=== PATIENT | male | born 1955 | race Caucasian/White ===

== ENCOUNTER → 2018-09-21 | Outpatient (CLI) | payer MEDICARE ==
[2018-09-21 10:55] LABS: INR 1.8 (<1.2); Prothrombin Time 18.2 sec (9.0-12.0)
== END | disposition home or self-care (01) ==
LOC: LABWHC1 09:47
DX: I81 Portal vein thrombosis (principal)
CPT/HCPCS: 36415; 85610

== ENCOUNTER → 2018-09-28 | Outpatient (CLI) | payer MEDICARE ==
[2018-09-28 11:46] LABS: INR 2.2 (<1.2); Prothrombin Time 21.9 sec (9.0-12.0)
== END | disposition home or self-care (01) ==
LOC: LABWHC1 10:24
PROVIDERS: ATTEND Internal Medicine Hematology & Oncology
DX: I81 Portal vein thrombosis (principal)
CPT/HCPCS: 36415; 85610

== ENCOUNTER → 2018-10-06 | Outpatient (CLI) | payer MEDICARE ==
[2018-10-06 12:26] LABS: INR 2.3 (<1.2); Prothrombin Time 22.4 sec (9.0-12.0)
== END ==
LOC: LABWHC1 11:47
PROVIDERS: ATTEND Internal Medicine Hematology & Oncology
DX: I81 Portal vein thrombosis (principal)
CPT/HCPCS: 36415; 85610

== ENCOUNTER → 2019-02-24 | Outpatient (CLI) | payer MEDICARE ==
[2019-02-24 17:05] LABS: Prothrombin Time 19.5 sec (9.0-12.0)
== END | disposition home or self-care (01) ==
LOC: LABWHC1 16:17
PROVIDERS: ATTEND Internal Medicine Hematology & Oncology
DX: K55.069 Acute infarction of intestine, part and extent unspecified (principal)
CPT/HCPCS: 36415; 85610

== ENCOUNTER → 2019-08-19 | Outpatient (CLI) | payer MEDICARE ==
[2019-08-19 13:28] LABS: Basophils # (A) 0.1 k/uL (0-0.2); Basophils % (A) 1 %; Eosinophils # (A) 0.3 k/uL (0-0.7); Eosinophils % (A) 4 %; HCT 51.3 % (39.0-53.0); HGB 17.5 gm/dL (13.0-17.5); Lymphocytes # (A) 1.8 k/uL (1.0-4.8); Lymphocytes % (A) 28 %; MCH 30.6 pg (25.0-35.0); MCHC 34.1 g/dL (31.0-37.0); MCV 89.7 fL (80.0-100.0); Mean Platelet Volume 8.6; Monocytes # (A) 0.4 k/uL (0-1.0); Monocytes % (A) 7 %; Neutrophils # (A) 3.6 k/uL (1.3-7.7); Neutrophils % (A) 58 %; Platelet Count 141 k/uL (150-450); RBC 5.72 m/uL (4.30-5.90); RDW 13.8 % (11.5-15.5); WBC 6.3 k/uL (3.8-10.6)
[2019-08-19 14:08] LABS: Poikilocytosis (M) Present
[2019-08-19 19:12] LABS: African American GFR (CKD) 81.8 (60.0-200.0); Albumin 4.5 g/dL (3.80-4.90); Albumin/Globulin Ratio 2.25 (1.60-3.17); Anion Gap 9.8 mmol/L (4.00-12.00); Carbon Dioxide 24.2 mmol/L (21.6-31.8); Non-African American GFR(CKD) 70.6 (60.0-200.0); Potassium 4.1 mmol/L (3.5-5.5); Total Bilirubin 0.4 mg/dL (0.2-1.2); Total Protein 6.5 g/dL (6.2-8.2)
== END | disposition home or self-care (01) ==
LOC: LABWHC1 12:24
DX: I81 Portal vein thrombosis (principal); D75.1 Secondary polycythemia
CPT/HCPCS: 36415; 80053; 81206; 83615; 85025

== ENCOUNTER → 2020-01-04 | Outpatient (CLI) | payer MEDICARE ==
--- NOTE | 2020-01-04 11:49 | XR ---
EXAM TYPE: LUMBAR SPINE X RAY SERIES COMPARISON: NONE HISTORY: Pain TECHNIQUE: 4 views are submitted. FINDINGS: Alignment is anatomic. The pedicles are intact. The transverse processes are intact. There is no s pondylolysis or spondylolisthesis. There is multilevel hypertrophic and degenerative change. No comp ression deformities. IMPRESSION: 1. Mild multilevel hypertrophic and degenerative change.
--- NOTE | 2020-01-04 11:53 | XR ---
EXAMINATION TYPE: XR thoracic spine complete DATE OF EXAM: 01/04/2020 COMPARISON: NONE HISTORY: Pain TECHNIQUE: 3 views submitted FINDINGS: Alignment is anatomic. There is no compression deformities. Postsurgical change overlying the Cervical spine. There is a subtle curvature of the thoracic spine with multilevel mild to moderate de generative disc disease and hypertrophic changes. No compression deformities. IMPRESSION: 1. Multilevel mild to moderate degenerative disc disease
== END | disposition home or self-care (01) ==
LOC: RADXRMAIN 11:15
PROVIDERS: ATTEND Family Medicine
DX: M51.34 Other intervertebral disc degeneration, thoracic region (principal); M47.817 Spondylosis without myelopathy or radiculopathy, lumbosacral region
CPT/HCPCS: 72072; 72110

== ENCOUNTER → 2020-03-08 | Outpatient (CLI) | payer MEDICARE ==
[2020-03-08 13:53] LABS: Basophils % (A) 1 %; Eosinophils # (A) 0.1 k/uL (0-0.7); Eosinophils % (A) 2 %; HCT 52.6 % (39.0-53.0); HGB 17.2 gm/dL (13.0-17.5); Lymphocytes # (A) 1.2 k/uL (1.0-4.8); Lymphocytes % (A) 19 %; MCH 29.2 pg (25.0-35.0); MCHC 32.8 g/dL (31.0-37.0); MCV 89.2 fL (80.0-100.0); Mean Platelet Volume 8.1; Monocytes # (A) 0.4 k/uL (0-1.0); Monocytes % (A) 6 %; Neutrophils # (A) 4.4 k/uL (1.3-7.7); Neutrophils % (A) 71 %; Platelet Count 310 k/uL (150-450); RDW 13.4 % (11.5-15.5); WBC 6.2 k/uL (3.8-10.6)
[2020-03-08 23:56] LABS: African American GFR (CKD) 81.2 (60.0-200.0); Albumin 4.2 g/dL (3.80-4.90); Albumin/Globulin Ratio 1.75 (1.60-3.17); Anion Gap 10.1 mmol/L (4.00-12.00); Calcium 9.4 mg/dL (8.7-10.3); Carbon Dioxide 25.9 mmol/L (21.6-31.8); Globulin 2.4 g/dL (1.6-3.3); Non-African American GFR(CKD) 70.1 (60.0-200.0); Potassium 4.4 mmol/L (3.5-5.5); Total Protein 6.6 g/dL (6.2-8.2)
== END | disposition home or self-care (01) ==
LOC: LABWHC1 12:46
PROVIDERS: ATTEND Nurse Practitioner Gerontology
DX: Z51.81 Encounter for therapeutic drug level monitoring (principal); Z79.01 Long term (current) use of anticoagulants; I81 Portal vein thrombosis
CPT/HCPCS: 36415; 80053; 83615; 85025

== ENCOUNTER → 2020-03-28 | Outpatient (CLI) | payer MEDICARE ==
--- NOTE | 2020-03-28 09:57 | MR ---
EXAMINATION TYPE: MR thoracic spine wo con DATE OF EXAM: 03/28/2020 COMPARISON: 01/04/2020 HISTORY: Thoracic back pain with radicular symptoms, Abdomen Pain, Attn:T10-T12 Standard multiplanar, multisequence MRI departmental protocol Multiplanar, multisequence images of the thoracic spine were acquired. FINDINGS: There is multilevel disc mild desiccation with hypertrophic spurring anteriorly. There are no dawood wayne deformities. Vertebral marrow signal is maintained at all levels. There are no compression defor mities. At T7-T8 paracentral disc bulging slightly greater paracentrally to the right. No canal stenosis or s manav cord contact. No foraminal encroachment. Multilevel facet arthropathy and ligamentum flavum hyp ertrophy most pronounced in the lower thoracic spine. Neural foramina appear to be patent at all leve ls. No abnormal signal within the visualized spinal cord or paraspinal musculature. Previous surgery invo lving the cervical spine results in artifact. IMPRESSION: Multilevel mild hypertrophic and degenerative changes with minimal disc bulging at T7-T8 but no spina l cord contact, canal stenosis or foraminal encroachment.
== END | disposition home or self-care (01) ==
LOC: RADMRIMAIN 08:34
PROVIDERS: ATTEND Family Medicine
DX: M51.24 Other intervertebral disc displacement, thoracic region (principal); M47.814 Spondylosis without myelopathy or radiculopathy, thoracic region; M89.38 Hypertrophy of bone, other site
CPT/HCPCS: 72146

== ENCOUNTER → 2020-06-08 | Outpatient (CLI) | payer MEDICARE ==
[2020-06-08 23:13] LABS: Basophils # (A) 0.04 X 10*3/uL (0.00-0.10); Basophils % (A) 0.7 %; Eosinophils # (A) 0.16 X 10*3/uL (0.04-0.35); Eosinophils % (A) 2.8 %; HCT 51.9 % (39.6-50.0); HGB 17.3 g/dL (13.0-17.0); Lymphocytes % (A) 29.7 %; MCH 29.4 pg (27.0-32.0); MCHC 33.3 g/dL (32.0-37.0); MCV 88.3 fL (80.0-97.0); Mean Platelet Volume 10.8 fL (9.5-12.2); Monocytes # (A) 0.58 X 10*3/uL (0.20-1.00); Monocytes % (A) 10.1 %; Neutrophils # (A) 3.23 X 10*3/uL (1.80-7.70); Neutrophils % (A) 56.4 %; Platelet Count 149 X 10*3/uL (140-440); RBC 5.88 X 10*6/uL (4.40-5.60); RDW 13.5 % (11.5-14.5); WBC 5.73 X 10*3/uL (4.50-10.00)
== END | disposition home or self-care (01) ==
LOC: LABWHC1 14:22
PROVIDERS: ATTEND Family Medicine
DX: D75.1 Secondary polycythemia (principal); D69.6 Thrombocytopenia, unspecified
CPT/HCPCS: 36415; 85025

== ENCOUNTER → 2020-07-06 | Outpatient (CLI) | payer MEDICARE ==
--- NOTE | 2020-07-06 11:40 | CT ---
EXAMINATION TYPE: CT brain wo con DATE OF EXAM: 07/06/2020 COMPARISON: None HISTORY: Injury to back of head 10 days ago. +LOC. CT DLP: [address] of the brain was performed. The ventricles, basal cisterns and sulci overlying the cerebral convexities demonstrate mild enlargem ent. There is no evidence for intracranial hemorrhage or sulcal effacement. There is decreased attenuation about the periventricular white matter and deep white matter of both c erebral hemispheres, compatible with chronic small vessel ischemia. Differential diagnosis does inclu de demyelination. No mass effects are seen.No midline shift. Osseous calvarium is intact. If symptoms persist consider MRI. IMPRESSION: 1. Age related atrophic and chronic small vessel ischemic change without acute intracranial process s een at this time.
== END | disposition home or self-care (01) ==
LOC: RADCTMAIN 11:01
PROVIDERS: ATTEND Family Medicine
DX: I67.82 Cerebral ischemia (principal)
CPT/HCPCS: 70450

== ENCOUNTER → 2020-08-02 | Outpatient (CLI) | payer MEDICARE ==
--- NOTE | 2020-08-02 12:02 | MR ---
EXAMINATION TYPE: MR brain wo/w con DATE OF EXAM: 08/02/2020 COMPARISON: CT brain 07/06/2020 HISTORY: Head injury 2-3 weeks agoS09.90XA TECHNIQUE: Multiplanar, multisequence images of the brain and brainstem is performed without and with IV contras t, utilizing 9.5 mL intravenous Gadavist . FINDINGS: Diffusion weighted images demonstrate no evidence of a recent infarct or other diffusion ab normality. There is no extra-axial fluid collection. Hyperintense foci are present in the subcortic al, pericallosal, periventricular white matter on inversion recovery T2-weighted sequences, approxima tely 50 lesions are present, largest in the right frontal lobe on axial image 24 measures 6 mm The ve ntricular system and cisternal spaces are normal in size and appearance. The brain volume is age spenser ropriate. Midline structures demonstrate normal morphology. The craniocervical junction appears within normal limits. Post contrast images demonstrate no abnormal enhancement. The dural venous sinuses appear pa tent. The visualized sinuses are remarkable for mucus retention cysts in the right maxillary sinus, m ucosal thickening in the ethmoid air cells,, and the globes are intact. IMPRESSION: Nonspecific white matter demyelination. No acute abnormality.
== END | disposition home or self-care (01) ==
LOC: RADMRIMAIN 08:56
PROVIDERS: ATTEND Family Medicine
DX: S09.90XA Unspecified injury of head, initial encounter (principal); R90.82 White matter disease, unspecified
CPT/HCPCS: 70553; A9585

== ENCOUNTER → 2020-08-02 | Outpatient (CLI) | payer MEDICARE ==
--- NOTE | 2020-08-02 12:51 | CT ---
EXAMINATION TYPE: CT heart w calcium score DATE OF EXAM: 08/02/2020 COMPARISON: None. HISTORY: Screening for cardiovascular disorder. 213.9. Family history of ischemic heart disease. CT DLP: 86.50 mGycm Automated exposure control for dose reduction was used. CT CALCIUM SCORING Coronary calcium is a marker for plaque (fatty deposits) in a blood vessel or atherosclerosis (harden ing of the arteries). The presence and amount of calcium detected in a coronary artery by the CT sca n, indicates the presence and amount of atherosclerotic plaque. These calcium deposits appear years before the development of heart disease symptoms such as chest pain and shortness of breath. A calcium score is computed for each of the coronary arteries based upon the volume and density of th e calcium deposits. This can be referred to as your calcified plaque burden. It does not correspond directly to the percentage of narrowing in the artery but does correlate with the severity of the un derlying coronary atherosclerosis. PROCEDURE TECHNIQUE - Prospective Gating was used. Slice thickness: 3mm. Density threshold (HU): 130, Pixel threshold: 3, Algorithm: discrete. RESULTS Region: LM Calcium Score (Agat[place]): 0 Region: RCA Calcium Score ([place]at[place]): 27.83 Volume (mm3): 33.14 Region: LAD Calcium Score ([place]at[place]): 185.56 Volume (mm3): 145.13 Region: CX Calcium Score ([place]at[place]): 0 Region: PDA Calcium Score ([place]atston): 0 Total: Calcium Score (Agatston): 213.39 Volume (mm3): 178.27 There is mild to moderate emphysematous change in visualized lungs greater upper aspect. There is asc ending aortic aneurysm up to 4.3 cm in size on axial image 14. The subcentimeter hypodense lesion lef t hepatic dome image 51 presumed benign. Localizer not sent to PACS. IMPRESSION: Calcium Score: 101-400 Implication: Definite, at least moderate atherosclerotic plaque. Risk of Coronary Artery Disease: Mild coronary artery disease highly likely, significant narrowings p ossible Note is made of 4.3 cm ascending aortic aneurysm. CALCIUM SCORE IMPLICATION RISK OF C ORONARY ARTERY DISEASE 0 No identifiable plaque Very low, generally less than 5% 1-10 Minimal identifiable plaque Very unlikely, less than 10% 11-100 Definite, at least mild atherosclerotic plaque Mild or m inimal coronary narrowings likely 101-400 Definite, at least moderate atherosclerotic plaque Mild coronary ar yanet disease highly likely, significant narrowing possible 401 or Higher Extensive atherosclerotic plaque High lik elihood of at least one significant coronary narrowing
== END | disposition home or self-care (01) ==
LOC: RADCTMAIN 09:04
PROVIDERS: ATTEND Family Medicine
DX: Z13.6 Encounter for screening for cardiovascular disorders (principal); I25.10 Atherosclerotic heart disease of native coronary artery without angina pectoris; I71.2 Thoracic aortic aneurysm, without rupture; Z82.49 Family history of ischemic heart disease and other diseases of the circulatory system
CPT/HCPCS: 75571

== ENCOUNTER → 2021-02-13 | Outpatient (CLI) | payer MEDICARE ==
[2021-02-13 23:56] LABS: Basophils # (A) 0.04 X 10*3/uL (0.00-0.10); Basophils % (A) 0.6 %; Eosinophils # (A) 0.15 X 10*3/uL (0.04-0.35); Eosinophils % (A) 2.3 %; HGB 17.2 g/dL (13.0-17.0); Lymphocytes # (A) 1.96 X 10*3/uL (0.90-5.00); MCH 29.7 pg (27.0-32.0); MCHC 33.1 g/dL (32.0-37.0); MCV 89.7 fL (80.0-97.0); Mean Platelet Volume 10.4 fL (9.5-12.2); Monocytes # (A) 0.68 X 10*3/uL (0.20-1.00); Monocytes % (A) 10.4 %; Neutrophils # (A) 3.66 X 10*3/uL (1.80-7.70); Neutrophils % (A) 55.9 %; Platelet Count 127 X 10*3/uL (140-440); WBC 6.54 X 10*3/uL (4.50-10.00)
[2021-02-14 00:02] LABS: INR 3.43 (0.90-1.11); Prothrombin Time 36.6 sec (9.9-11.9)
[2021-02-14 01:55] LABS: ALT 37 U/L (10-49); AST 21 U/L (14-35); African American GFR (CKD) 71.9 (60.0-200.0); Albumin 4.7 g/dL (3.8-4.9); Albumin/Globulin Ratio 2.14 (1.60-3.17); Alkaline Phosphatase 102 U/L (41-126); BUN/Creat Ratio 16.86 Ratio (12.00-20.00); Bilirubin, Conjugated <0.20 mg/dL (0.20-0.40); Blood Urea Nitrogen 20.4 mg/dL (9.0-27.0); Calcium 9.4 mg/dL (8.7-10.3); Carbon Dioxide 22.9 mmol/L (20.0-27.5); Chloride 103 mmol/L (96-109); Globulin 2.2 g/dL (1.6-3.3); Glucose 91 mg/dL (70-110); Potassium 4.4 mmol/L (3.5-5.5); Sodium 140 mmol/L (135-145); Total Protein 6.8 g/dL (6.2-8.2)
== END | disposition home or self-care (01) ==
LOC: LABWHC1 16:12
PROVIDERS: ATTEND Internal Medicine
DX: I81 Portal vein thrombosis (principal); K76.89 Other specified diseases of liver
CPT/HCPCS: 36415; 80048; 80076; 82105; 85025; 85610

== ENCOUNTER → 2021-06-15 | Outpatient (CLI) | payer MEDICARE ==
--- NOTE | 2021-06-15 13:20 | CT ---
EXAMINATION TYPE: CT abdomen wo/w con DATE OF EXAM: 06/15/2021 COMPARISON: None HISTORY: Abdominal aortic aneurysm. CT DLP: 1140.2 mGycm Automated exposure control for dose reduction was used. TECHNIQUE: Helical acquisition of images was performed from the lung bases through the top of iliac crest to include entire abdomen. CONTRAST: Performed without Oral Contrast and with and without nonionic IV contrast. 3-D post processing was pe rformed. FINDINGS: The lung bases are clear. There are no gallstones, gallbladder wall thickening, pericholecystic fluid or distention. There is n o biliary ductal dilatation. There is no organomegaly involving the liver, pancreas, spleen or adrenal glands. There are 2 small l ow-density lesions within the liver most likely representing hemangiomas. There are no renal calcifications or hydronephrosis. The caliber of the abdominal aorta is normal and there is no evidence of aneurysm or retroperitoneal adenopathy. The bowel loops are normal in caliber and there is no evidence of bowel obstruction. No inflammatory changes are identified in the mesentery. There is mild diverticulosis of the colon without CT evidenc e of diverticulitis. The visualized osseous structures are intact. Impression: No significant abnormality seen. There is no evidence of abdominal aortic aneurysm.
== END | disposition home or self-care (01) ==
LOC: RADCTMAIN 07:48
PROVIDERS: ATTEND Internal Medicine Cardiovascular Disease
DX: I71.4 Abdominal aortic aneurysm, without rupture (principal)
CPT/HCPCS: 82565; 84520; 74170; 36415; Q9967

== ENCOUNTER → 2022-02-04 | Outpatient (CLI) | payer MEDICARE ==
[2022-02-04 22:51] LABS: Basophils # (A) 0.02 X 10*3/uL (0.00-0.10); Basophils % (A) 0.3 %; Eosinophils % (A) 1.6 %; HCT 51.1 % (39.6-50.0); HGB 17.7 g/dL (13.0-17.0); Immature Grans, Automated 0.3 %; Lymphocytes # (A) 1.36 X 10*3/uL (0.90-5.00); MCH 30.8 pg (27.0-32.0); MCHC 34.6 g/dL (32.0-37.0); MCV 88.9 fL (80.0-97.0); Mean Platelet Volume 10.9 fL (9.5-12.2); Monocytes # (A) 0.63 X 10*3/uL (0.20-1.00); Monocytes % (A) 10.2 %; NRBC Per 100 WBC 0 /100 WBCS (0.0-0.0); Neutrophils # (A) 4.06 X 10*3/uL (1.80-7.70); Neutrophils % (A) 65.6 %; Platelet Count 155 X 10*3/uL (140-440); RBC 5.75 X 10*6/uL (4.40-5.60); RDW 13.2 % (11.5-14.5); WBC 6.19 X 10*3/uL (4.50-10.00)
[2022-02-04 22:52] LABS: ALT 34 U/L (10-49); AST 22 U/L (14-35); African American GFR (CKD) 75.9 (60.0-200.0); Albumin 4.7 g/dL (3.8-4.9); Albumin/Globulin Ratio 2.27 (1.60-3.17); Alkaline Phosphatase 115 U/L (41-126); BUN/Creat Ratio 18.61 Ratio (12.00-20.00); Bilirubin, Conjugated <0.20 mg/dL (0.20-0.40); Blood Urea Nitrogen 21.4 mg/dL (9.0-27.0); Calcium 9.1 mg/dL (8.7-10.3); Carbon Dioxide 26.2 mmol/L (20.0-27.5); Chloride 103 mmol/L (96-109); Globulin 2.1 g/dL (1.6-3.3); Glucose 90 mg/dL (70-110); Non-African American GFR(CKD) 65.5 (60.0-200.0); Potassium 4.3 mmol/L (3.5-5.5); Sodium 140 mmol/L (135-145); Total Protein 6.8 g/dL (6.2-8.2)
== END | disposition home or self-care (01) ==
LOC: LABWHC1 15:19
PROVIDERS: ATTEND Internal Medicine
DX: I81 Portal vein thrombosis (principal); K55.069 Acute infarction of intestine, part and extent unspecified; I82.890 Acute embolism and thrombosis of other specified veins; K76.89 Other specified diseases of liver
CPT/HCPCS: 36415; 80048; 80076; 82105; 85025

== ENCOUNTER → 2023-01-21 | Outpatient (CLI) | payer MEDICARE ==
[2023-01-22 02:13] LABS: HCT 52.3 % (39.6-50.0); HGB 17.6 g/dL (13.0-17.0); MCH 29.4 pg (27.0-32.0); MCHC 33.7 g/dL (32.0-37.0); MCV 87.5 FL (80.0-97.0); Mean Platelet Volume 10.6 FL (9.5-12.2); NRBC Per 100 WBC 0 X 10*3/uL (0.00-0.01); Platelet Count 165 X 10*3/uL (140-440); RBC 5.98 X 10*6/uL (4.40-5.60); WBC 5.15 X 10*3/uL (4.50-10.00)
[2023-01-22 02:30] LABS: ALT 34 U/L (10-49); AST 20 U/L (14-35); Albumin 4.7 g/dL (3.8-4.9); Albumin/Globulin Ratio 1.88 Ratio (1.60-3.17); Alkaline Phosphatase 97 U/L (41-126); BUN/Creat Ratio 17.91 Ratio (12.00-20.00); Bilirubin, Conjugated <0.20 mg/dL (0.20-0.40); Bilirubin,Unconjugated >0.30 mg/dL (0.20-1.00); Blood Urea Nitrogen 19.7 mg/dL (9.0-27.0); Calcium 9.8 mg/dL (8.7-10.3); Carbon Dioxide 27.1 mmol/L (21.6-31.8); Chloride 101 mmol/L (96-109); Globulin 2.5 g/dL (1.6-3.3); Glucose 94 mg/dL (70-110); Potassium 3.8 mmol/L (3.5-5.5); Sodium 142 mmol/L (135-145); Total Bilirubin 0.5 mg/dL (0.3-1.2); Total Protein 7.2 g/dL (6.2-8.2)
== END | disposition home or self-care (01) ==
LOC: LABWHC1 14:58
PROVIDERS: ATTEND Internal Medicine
DX: I81 Portal vein thrombosis (principal); K76.89 Other specified diseases of liver
CPT/HCPCS: 36415; 80048; 80076; 82105; 85027

== ENCOUNTER → 2024-02-19 | Outpatient (CLI) | payer MEDICARE ==
[2024-02-19 20:28] LABS: Basophils # (A) 0.03 X 10*3/uL (0.00-0.10); Basophils % (A) 0.6 %; Eosinophils # (A) 0.12 X 10*3/uL (0.04-0.35); Eosinophils % (A) 2.3 %; HGB 17.9 g/dL (13.0-17.0); INR 2.09 sec (0.93-1.11); Lymphocytes # (A) 1.71 X 10*3/uL (0.90-5.00); Lymphocytes % (A) 32.9 %; MCH 29.7 pg (27.0-32.0); MCHC 34.4 g/dL (32.0-37.0); MCV 86.4 FL (80.0-97.0); Mean Platelet Volume 10.4 FL (9.5-12.2); Monocytes # (A) 0.44 X 10*3/uL (0.20-1.00); Monocytes % (A) 8.5 %; NRBC Per 100 WBC 0 X 10*3/uL (0.00-0.01); Neutrophils # (A) 2.87 X 10*3/uL (1.80-7.70); Neutrophils % (A) 55.3 %; Platelet Count 171 X 10*3/uL (140-440); Prothrombin Time 22.6 sec (9.9-11.9); RBC 6.02 X 10*6/uL (4.40-5.60); RDW 13.2 % (11.5-14.5); WBC 5.19 X 10*3/uL (4.50-10.00)
[2024-02-19 20:52] LABS: ALT 46 U/L (10-49); AST 44 U/L (14-35); Albumin 4.8 g/dL (3.8-4.9); Albumin/Globulin Ratio 1.85 Ratio (1.60-3.17); Alkaline Phosphatase 86 U/L (41-126); BUN/Creat Ratio 19.17 Ratio (12.00-20.00); Bilirubin, Conjugated <0.20 mg/dL (0.20-0.40); Bilirubin,Unconjugated >0.30 mg/dL (0.20-1.00); Calcium 9.7 mg/dL (8.7-10.3); Carbon Dioxide 24.9 mmol/L (21.6-31.8); Chloride 104 mmol/L (96-109); Globulin 2.6 g/dL (1.6-3.3); Glucose 100 mg/dL (70-110); Potassium 4.4 mmol/L (3.5-5.5); Sodium 143 mmol/L (135-145); Total Bilirubin 0.5 mg/dL (0.3-1.2); Total Protein 7.4 g/dL (6.2-8.2)
== END | disposition home or self-care (01) ==
LOC: LABWHC1 14:33
PROVIDERS: ATTEND Internal Medicine
DX: I82.890 Acute embolism and thrombosis of other specified veins (principal); K76.89 Other specified diseases of liver
CPT/HCPCS: 36415; 80048; 80076; 82105; 85025; 85610

== ENCOUNTER → 2024-04-13 | Outpatient (CLI) | payer MEDICARE ==
[2024-04-13 14:08] VITALS: BP 104/86; PULSE 90; RESP 18; TEMP 97.8
--- NOTE | 2024-04-13 20:36 | P.SLEEP ---
History of Present Illness H&P Date: 04/13/24 This is a 69-year-old male patient who was referred to me due to concerns of sleep apnea. The patient has history of venous thrombosis and he has had mesenteric, splenic and portal vein thrombosis, followed up by hematology department at [facility]. He has been maintained on long-term anticoagulation with warfarin. An extensive hematologic workup has been done and no final diagnosis been established regarding any form of hypercoagulable state or hematologic disorder. The patient has also history of erythrocytosis. Based on that, he was referred for sleep apnea evaluation In fact, the patient has been diagnosed having obstructive sleep apnea a few years back. This evaluation was done at an outside sleep center. The details of the diagnosis and severity of illness is not known. The patient was given a ResMed CPAP unit which was set at a pressure of 8 cm of water along with a Simplus fullface mask. He was unable to tolerate the treatment and patient is currently not utilizing his CPAP therapy. He states that he will wake up without having the mask on his face and it seems that the patient had poor tolerability, pulling out his mask consistently. Due to failure of treatment, the treatment has been discontinued. He has history of snoring. Questionable witnessed apneas at nighttime. Goes to bed at around 10 PM, wakes up 7 AM in the morning. He is averaging around 8 hours of sleep and he usually wakes up at least once in the middle of the night. Takes a few minutes to fall asleep. He takes another nap at around 10:30 AM in the morning. He sleeps on his side. His weight has remained stable over the past 5 years without any significant weight gain or weight loss. No sleep paralysis. No hallucinations. No cataplexy. No history of head trauma. No history of stroke. No cardiac arrhythmias. No history of CHF, atrial fibrillation or myocardial infarction. He has history of depression and hyperlipidemia and hypertension. His current [place] score is 11. Review of Systems Constitutional: Reports daytime sleepiness, Reports fatigue Eyes: denies as per HPI, denies blurred vision, denies bulging eye, denies decreased vision, denies diplopia, denies discharge, denies dry eye, denies irritation, denies itching, denies pain, denies photophobia, denies loss of peripheral vision, denies loss of vision, denies tunnel vision/blind spots Ears: deny: decreased hearing, ear discharge, earache, tinnitus Ears, nose, mouth and throat: Reports as per HPI Breasts: absent: as per HPI, gynecomastia Cardiovascular: Reports as per HPI Respiratory: Reports sleep apnea, Reports snoring Gastrointestinal: Reports abdominal pain, Reports indigestion Genitourinary: Reports as per HPI Musculoskeletal: Reports as per HPI Musculoskeletal: absent: ankle pain, ankle stiffness, ankle swelling, as per HPI, elbow pain, elbow stiffness, elbow swelling, foot pain, foot stiffness, foot swelling, hand pain, hand stiffness, hand swelling, hip pain, hip stiffness, hip swelling, knee pain, knee stiffness, knee swelling, shoulder pain, shoulder stiffness, shoulder swelling, wrist pain, wrist stiffness, wrist swelling Integumentary: Reports as per HPI Neurological: Reports as per HPI Psychiatric: Reports hypersomnia, Reports sleep disturbances Endocrine: Reports as per HPI Hematologic/Lymphatic: Reports as per HPI Allergic/Immunologic: Reports as per HPI Past Medical History Past Medical History: COPD, Deep Vein Thrombosis (DVT), Hyperlipidemia, Sleep Apnea/CPAP/BIPAP Additional Past Medical History / Comment(s): Not using CPAP, Anxiety, depression, Bipolar/Manic Depressive, COPD, panic attacks, [place] high cholesterol, unprovoked mesenteric, portal and splenic vein thrombosis, erythrocytosis, polyps in the colon, history of DVT, thoracic aneurysm measuring 4.3 cm in size involving the ascending aorta, fatty liver History of Any Multi-Drug Resistant Organisms: None Reported Past Surgical History: Appendectomy, Tonsillectomy Additional Past Surgical History / Comment(s): Neck surgery Past Psychological History: Anxiety, Bipolar, Depression, Panic Disorder Additional Psychological History / Comment(s): Manic depressive Smoking Status: Former smoker Past Alcohol Use History: None Reported Past Drug Use History: None Reported - Past Family History Father Family Medical History: Cancer, COPD Additional Family Medical History / Comment(s): Lung cancer Medications and Allergies Home Medications and Allergies Comment(s): Citalopram 10 mg p.o. daily, Seroquel 100 mg at bedtime, Trileptal 300 mg p.o. 3 times daily, meclizine 12.5 mg 4 times daily, as needed, Xanax 0.5 mg 3 times daily, as needed, Crestor 10 mg p.o. daily, Coumadin 5 mg p.o. daily, [place] 325 1 tablet 3 times daily, Colace as needed, hydrochlorothiazide 25 mg p.o. daily, nifedipine 30 mg p.o. daily, Vascepa 1 g in the morning Physical Exam Vitals: Vital Signs Temp Pulse Resp BP Pulse Ox 04/13/24 14:07 97.8 F 90 18 104/86 96 Intake and Output 04/12/24 04/13/24 04/13/24 22:59 06:59 14:59 Other: Weight 101.151 kg The patient appeared well nourished and normally developed. Vital signs as documented. Body mass index is 31.4 Head exam is unremarkable. No scleral icterus or corneal arcus noted. Neck is without jugular venous distension, thyromegaly, or carotid bruits. Carotid upstrokes are brisk bilaterally. The patient has a Mallampati class IV Lungs are clear to auscultation and percussion. Cardiac exam reveals the PMI to be normally sized and situated. Rhythm is regular. First and second heart sounds normal. No murmurs, rubs or gallops. Abdominal exam reveals normal bowel sounds, no masses, no organomegaly and no aortic enlargement. Extremities are nonedematous and both femoral and pedal pulses are normal. Examination of the skin revealed no evidence of significant rashes, suspicious appearing nevi or other concerning lesions. Neurologically, the patient is awake and alert and the patient does not have any focal neurological deficit. Cranial nerves are essentially intact. Assessment and Plan Plan: Obstructive sleep apnea, diagnosed few years back. The patient has been nontolerant to CPAP therapy. He was offered CPAP therapy pressure of 8 cm of water and the patient was unable to tolerate the treatment and he is off treatment for now. The evaluation was requested specially with his history of erythrocytosis and venous thrombosis. Snoring Chronic fatigue and sleepiness with an [place] score of 11 Erythrocytosis History of venous thrombosis involving the mesenteric vein, portal vein and splenic vein, unprovoked and the patient is admitted on long-term anticoagulation with warfarin History of DVT Ascending thoracic aortic aneurysm measuring 4.3 cm in size Fatty liver Bipolar/manic depressive disorder COPD Hyperlipidemia Previous history of panic attacks Plan Obviously, this patient has history of obstructive sleep apnea. Disease severity is not known at this point. He will need a reevaluation. Going to order another polysomnography to evaluate the presence and severity of sleep apnea and decide on treatment options. The patient has not been tolerant to CPAP therapy. His body mass index is less than 32. He may be considered for inspire/hypoglossal nerve stimulation therapy as an alternative option for treatment of obstructive sleep apnea. Encourage weight loss. Continue same treatment. Optimize sleep hygiene measures. Will continue to follow. Sleep Note - Sleep Data ESS Total: 11 - Sleep Note Sleep Note: Temperature: 97.8 F Pulse Rate: 90 Respiratory Rate: 18 Blood Pressure: 104/86 SpO2: 96 Height: 5 ft 10.7 in Weight: 101.151 kg BMI: Neck Circumference: 17
== END ==
LOC: 3 N SLEEP 13:45
PROVIDERS: ATTEND Internal Medicine Critical Care Medicine
DX: G47.33 Obstructive sleep apnea (adult) (pediatric) (principal); D75.0 Familial erythrocytosis; I71.21 Aneurysm of the ascending aorta, without rupture; K76.0 Fatty (change of) liver, not elsewhere classified; J44.9 Chronic obstructive pulmonary disease, unspecified; E78.5 Hyperlipidemia, unspecified; F31.9 Bipolar disorder, unspecified; Z86.718 Personal history of other venous thrombosis and embolism
CPT/HCPCS: 99211

== ENCOUNTER → 2024-04-27 | Outpatient (CLI) | payer MEDICARE ==
--- NOTE | 2024-04-27 15:41 | XR ---
EXAMINATION TYPE: XR shoulder complete LT DATE OF EXAM: 04/27/2024 CLINICAL INDICATION: Male, 69 years old with history of M25.512 PAIN IN LEFT SHOULDER, pain TECHNIQUE: Three views of the left shoulder are obtained. COMPARISON: None. FINDINGS: There is no acute fracture/dislocation evident in the left shoulder. Moderate narrowing at the acromioclavicular joint. Narrowing is present at the glenohumeral joint. There are some calcific densities in the region of the humeral head could reflect intra-articular loose bodies. The visualiz ed ribs are intact and unremarkable. Postsurgical change of the mid to lower cervical spine is partia lly imaged IMPRESSION: As above. [facility], , 04/27/2024 3:39 PM
== END | disposition home or self-care (01) ==
LOC: RADXRMAIN 15:18
PROVIDERS: ATTEND Family Medicine
DX: M25.512 Pain in left shoulder (principal); Z98.890 Other specified postprocedural states

== ENCOUNTER → 2024-05-05 | Outpatient (CLI) | payer MEDICARE ==
--- NOTE | 2024-05-05 14:39 | MR ---
EXAMINATION TYPE: MR shoulder LT wo con DATE OF EXAM: 05/05/2024 2:18 PM COMPARISON: Left shoulder x-ray days ago CLINICAL INDICATION: Male, 69 years old with history of M25.512 left shoulder pain, Left shoulder ester n for 5 years IV Contrast: cc (None if empty) TECHNIQUE: Multiplanar, multisequence imaging of the left shoulder is performed without contrast. FINDINGS: Rotator Cuff: Intact infraspinatus tendon. Intact supraspinatus tendon with some heterogeneity distal ly. Intact subscapularis tendon. Rotator cuff muscle bulk is preserved. Acromioclavicular Joint: Moderate to severe narrowing and capsular hypertrophy. Mild spurring. Signif icant loss of underlying fat plane sagittal image 17. Glenohumeral Joint: Small sized joint effusion. No significant spurring. Narrowing is present. Labrum: Heterogeneous increased signal superior labrum felt to reflect degenerative tear. Biceps Tendon: The long head of biceps is in normal location within bicipital groove. Bone marrow signal: Some increased T2 signal at the acromioclavicular joint. Other: There are circumscribed oval lesions of low T1 and T2 signal intensity along the superior late ral aspect of the humeral head along the periphery of the rotator cuff muscles corresponding to calci fic or ossific bodies on plain films. IMPRESSION: 1. Superior labral tear thought Degenerative in etiology. 2. Moderate to severe AC joint arthropathy with probable underlying impingement. Correlate clinically . 3. No significant rotator cuff tear. 4. Dystrophic calcifications or ossifications along the periphery of the distal rotator cuff tendons is noted. [facility], , 05/05/2024 2:37 PM
== END | disposition home or self-care (01) ==
LOC: RADMRIMAIN 13:42
PROVIDERS: ATTEND Orthopaedic Surgery
DX: M19.012 Primary osteoarthritis, left shoulder (principal)

== ENCOUNTER 2024-05-11 19:18 | Outpatient (CLI) | payer MEDICARE ==
--- NOTE | 2024-05-25 22:57 | P.PCN ---
Date of Procedure: 05/11/24 Operative Findings: Polysomnography report Date of service is 05/11/2024 History 69-year-old male patient who was referred to me due to concerns of sleep apnea. The patient has history of venous thrombosis and he has had mesenteric, splenic and portal vein thrombosis, followed up by hematology department at [facility]. He has been maintained on long-term anticoagulation with warfarin. An extensive hematologic workup has been done and no final diagnosis been established regarding any form of hypercoagulable state or hematologic disorder. The patient has also history of erythrocytosis. Based on that, he was referred for sleep apnea evaluation In fact, the patient has been diagnosed having obstructive sleep apnea a few years back. This evaluation was done at an outside sleep center. The details of the diagnosis and severity of illness is not known. The patient was given a ResMed CPAP unit which was set at a pressure of 8 cm of water along with a Simplus fullface mask. He was unable to tolerate the treatment and patient is currently not utilizing his CPAP therapy. He states that he will wake up without having the mask on his face and it seems that the patient had poor tolerability, pulling out his mask consistently. Due to failure of treatment, the treatment has been discontinued. He has history of snoring. Questionable witnessed apneas at nighttime. Goes to bed at around 10 PM, wakes up 7 AM in the morning. He is averaging around 8 hours of sleep and he usually wakes up at least once in the middle of the night. Takes a few minutes to fall asleep. He takes another nap at around 10:30 AM in the morning. He sleeps on his side. His weight has remained stable over the past 5 years without any significant weight gain or weight loss. No sleep paralysis. No hallucinations. No cataplexy. No history of head trauma. No history of stroke. No cardiac arrhythmias. No history of CHF, atrial fibrillation or myocardial infarction. He has history of depression and hyperlipidemia and hypertension. His current [place] score is 11. Physical findings Weight is 223 pounds with a BMI of 31.3 Technical description The patient was studied using a standard complex polysomnography protocol that included recording of the Lead II EKG, Central, occipital and frontal EEG, right and left outer canthus EOG, submental EMG, right and left anterior tibialis EMG, respiratory airflow by thermocouple and or pressure/flow transducer, respiratory efforts by abdominal and thoracic PVDF belts, oxygen saturation by cable oximetry. Position by observation synchronized the PSG. Equipment used: [employer]. Sleep architecture The total recording duration was 425.5 minutes. The total sleep time was 383.5 minutes. The overall sleep efficiency was 90.1%. Related to sleep onset was 9.5 minutes. The latency to REM sleep was 163.0 minutes. The wake after sleep onset time was 30.5 minutes. The sleep architecture was characterized by 10.3% stage I, 75.4% stage II, 0.4% stage III, and a total of 14% REM sleep. The total arousal index was 7.7 Respiratory analysis The sleep study showed a total of 19 obstructive events of which 1 was obstructive apnea, 0 was mixed apnea and 18 were obstructive hypopneas. The resulting AHI was 2.7. In addition, the patient had a total of 2 central apneas with a central apnea index of 0.3 Oxygenation analysis The patient's baseline pulse ox while awake was 92%. The minimum pulse ox achieved was 83% and the patient spent only 4.5 minutes of the sleep time below pulse ox of 89% this accounted for 1.1% of the overall recording time. Arousal events A total of 49 arousals were counted with an index of 7.7. Respiratory arousal index was 0 Periodic limb movements A total of 60 periodic limb movement activity with arousals with an index of 2.5 Cardiac rates Average heart rate was 59 with a minimum heart rate of 55 and the maximum heart rate of 64 bpm. Assessment Primary snoring. No evidence of any sleep breathing disorder. The current sleep study shows no significant apneas or hypopneas. No significant nocturnal oxygen saturation. The AHI was 2.7. Note that this patient was diagnosed having obstructive sleep apnea, diagnosed few years back. The patient has been nontolerant to CPAP therapy. He was offered CPAP therapy pressure of 8 cm of water and the patient was unable to tolerate the treatment and he is off treatment for now. Snoring Chronic fatigue and sleepiness with an [place] score of 11 Erythrocytosis History of venous thrombosis involving the mesenteric vein, portal vein and splenic vein, unprovoked and the patient is admitted on long-term anticoagulation with warfarin History of DVT Ascending thoracic aortic aneurysm measuring 4.3 cm in size Fatty liver Bipolar/manic depressive disorder COPD Hyperlipidemia Previous history of panic attacks Plan No need for CPAP therapy Encourage weight loss. Continue same treatment. Optimize sleep hygiene measures. Refer this patient back to PCP
== END 2024-05-12 05:41 | disposition home or self-care (01) ==
LOC: 3 N SLEEP 19:18
PROVIDERS: ATTEND Internal Medicine Critical Care Medicine
DX: G47.33 Obstructive sleep apnea (adult) (pediatric) (principal); D75.1 Secondary polycythemia; I71.21 Aneurysm of the ascending aorta, without rupture; K76.0 Fatty (change of) liver, not elsewhere classified; F31.9 Bipolar disorder, unspecified; E78.5 Hyperlipidemia, unspecified; J44.9 Chronic obstructive pulmonary disease, unspecified; R53.82 Chronic fatigue, unspecified; Z86.718 Personal history of other venous thrombosis and embolism; Z99.89 Dependence on other enabling machines and devices; Z86.59 Personal history of other mental and behavioral disorders
CPT/HCPCS: 95810

== ENCOUNTER → 2024-05-18 | Outpatient (CLI) | payer MEDICARE ==
[2024-05-19 02:37] LABS: Basophils # (A) 0.04 X 10*3/uL (0.00-0.10); Basophils % (A) 0.7 %; Eosinophils # (A) 0.14 X 10*3/uL (0.04-0.35); Eosinophils % (A) 2.5 %; HGB 16.6 g/dL (13.0-17.0); Lymphocytes # (A) 1.64 X 10*3/uL (0.90-5.00); MCH 29.9 pg (27.0-32.0); MCHC 33.9 g/dL (32.0-37.0); MCV 88.3 FL (80.0-97.0); Mean Platelet Volume 10.9 FL (9.5-12.2); Monocytes # (A) 0.52 X 10*3/uL (0.20-1.00); Monocytes % (A) 9.2 %; NRBC Per 100 WBC 0 X 10*3/uL (0.00-0.01); Neutrophils # (A) 3.31 X 10*3/uL (1.80-7.70); Neutrophils % (A) 58.4 %; Platelet Count 190 X 10*3/uL (140-440); RBC 5.55 X 10*6/uL (4.40-5.60); RDW 13.2 % (11.5-14.5); WBC 5.66 X 10*3/uL (4.50-10.00)
[2024-05-19 03:04] LABS: Anion Gap 11.7 mmol/L (4.00-12.00); Carbon Dioxide 27.3 mmol/L (21.6-31.8); Potassium 3.8 mmol/L (3.5-5.5)
== END | disposition home or self-care (01) ==
LOC: LABPAT 16:00
PROVIDERS: ATTEND Orthopaedic Surgery
DX: Z01.818 Encounter for other preprocedural examination (principal); M75.42 Impingement syndrome of left shoulder
CPT/HCPCS: 80051; 85025

== ENCOUNTER 2024-06-16 05:38 | Day surgery (SDC) | payer MEDICARE ==
--- NOTE | 2024-06-15 23:16 | HP ---
HISTORY AND PHYSICAL DATE OF SURGERY: 06/16/2024. HISTORY OF PRESENT ILLNESS: Dajuan Cook is a 69-year-old gentleman seen with progressive left shoulder pain. We discussed options regarding treatment. He elected to proceed with arthroscopy. Consent was obtained. Hematology and Cardiology clearances were obtained. PAST MEDICAL HISTORY: Cardiovascular disease, hypertension, hyperlipidemia. PAST SURGICAL HISTORY: Appendectomy, tonsillectomy. DAILY MEDICATIONS: 1. Citalopram. 2. Hydrochlorothiazide. 3. Cardizem. 4. Rosuvastatin. 5. Coumadin. ALLERGIES: Effexor, penicillin, Wellbutrin. SOCIAL HISTORY: Denies tobacco use. PHYSICAL EVALUATION OF THE LEFT SHOULDER: Flexion is 130 degrees. Abduction is 110 degrees. External rotation is 30 degrees with pain and weakness. Tenderness along the anterolateral acromion, acromioclavicular joint, bicipital groove, rotator cuff tendon. Impingement is positive at 90 degrees. Cross-body adduction sign is positive. Drop-arm sign is positive. Distal neurovascular exam is intact. IMAGING STUDIES: Left shoulder radiographs revealed a type 2 acromion, acromioclavicular joint osteoarthritis and a large calcific area in the rotator cuff tendon area. MRI of left shoulder, labral tear, impingement, acromioclavicular joint osteoarthritis, and calcific tendinitis. IMPRESSION: 1. Left shoulder impingement with calcific tendinitis. 2. Left shoulder acromioclavicular joint osteoarthritis. 3. Left shoulder labral tear. PLAN: Left shoulder arthroscopy with subacromial decompression, Yudi, debridement of labral tear, decompression and calcifications with possible rotator cuff tendon repair. MMODL / IJN: [id number] /
[~2024-06-16 05:38] MED LIST: DEXAMETHASONE SOD PHOSPHATE 4 MG/ML 1 ML VIAL IV ONE; HYDROmorphone 0.5 MG/0.5 ML SYRINGE IVP PRN; ONDANSETRON 4 MG/2 ML VIAL IVP ONE; fentaNYL (PF) 50 MCG/ML 2 ML AMP IV PRN
[2024-06-16] MEDS: IV FLUID CONTINUATION 1,000 ML IV ONE ×2 (06:10)
[2024-06-16] MEDS: LACTATED RINGERS 1,000 ML IV SCH (06:42)
[2024-06-16] MEDS: ONDANSETRON 4 MG/2 ML VIAL IVP STA (06:56)
[2024-06-16] MEDS: DEXAMETHASONE SOD PHOSPHATE 4 MG/ML 1 ML VIAL IVP STA (06:56)
[2024-06-16 07:00] LABS: INR 1.1 (<1.2); Prothrombin Time 11.7 sec (10.0-12.5)
[2024-06-16] MEDS: MIDAZOLAM 2 MG/2 ML VIAL IV ONE (07:22)
[2024-06-16] MEDS: ceFAZolin 2 GM in DEXTROSE 5% IN WATER 50 ML IVPB PRN (07:30)
[2024-06-16] MEDS ORDERED: fentaNYL (PF) 50 MCG/ML 2 ML AMP ONE (07:30)
[2024-06-16] MEDS ORDERED: PHENYLEPHRINE-0.9% NACL SYG 1,000 MCG/10 ML SYRINGE ONE (07:30)
[2024-06-16] MEDS ORDERED: GLYCOPYRROLATE 0.2 MG/ML 2 ML VIAL ONE (07:30)
[2024-06-16] MEDS ORDERED: LIDOCAINE 1% INJ 10MG/ML (20 ML MDV) ONE (07:30)
[2024-06-16] MEDS ORDERED: DEXAMETHASONE SOD PHOSPHATE 4 MG/ML 1 ML VIAL ONE (07:30)
[2024-06-16] MEDS ORDERED: SUCCINYLCHOLINE CHLORIDE 200 MG/10 ML VIAL IV ONE (07:30)
[2024-06-16] MEDS ORDERED: PROPOFOL 10 MG/ML 20 ML VIAL IV ONE (07:30)
[2024-06-16] MEDS ORDERED: ROPIVACAINE 5 MG/ML 30 ML VIAL ONE (07:30)
--- NOTE | 2024-06-16 07:34 | P.ANPRN ---
Procedure Note - Anesthesia - Nerve Block Performed Left Interscalene Single Time Out Performed: Yes (0721) Date of Procedure: 06/16/24 Procedure Start Time: Procedure Stop Time: Location of Patient: PreOp Indication: Acute Post-Operative Pain, Requested by Surgeon Sedation Type: Sedate with meaningful contact maintained Preparation: Sterile Prep Position: Sitting Catheter: None Needle Types: Pajunk Needle Gauge: Other (see comment) (22G) Ultrasound used to visualize needle placement: Yes Ultrasound used to observe medication spread: Yes Injectate: 0.5% Ropivacaine (see comment for volume) Blood Aspirated: No Pain Paresthesia on Injection Noted: No Resistance on Injection: Normal Image Stored and Saved: Yes Events: Uneventful and Well Tolerated (21 mL of block solution containing 20 mL of 0.5% ropivacaine mixed with 4 mg of dexamethasone)
[2024-06-16 09:33] VITALS: TEMP 96.7
--- NOTE | 2024-06-16 09:35 | P.OP ---
Date of Procedure: 06/16/24 Preoperative Diagnosis: Left shoulder impingement Postoperative Diagnosis: 1. Left shoulder rotator cuff tear 2. Left shoulder impingement 3. Left shoulder bicipital tendinitis 4. Left shoulder acromioclavicular joint osteoarthritis 5. Left shoulder calcific lesion 6. Left shoulder superficial labral tear Procedure(s) Performed: 1. Left shoulder arthroscopic rotator cuff repair 2. Left shoulder arthroscopic subacromial decompression 3. Left shoulder arthroscopic biceps tenodesis 4. Left shoulder arthroscopic Yudi procedure 5. Left shoulder arthroscopic decompression calcific lesion 6. Left shoulder arthroscopic debridement labral tear Implants: 5Arthrex 4.75 swivel lock anchors Anesthesia: GETA, regional (Interscalene block) Surgeon: Ben Crum Strike Out Machine Operator #1: Manuelito Simpson Estimated Blood Loss (ml): 10 Pathology: none sent Condition: stable Disposition: PACU Indications for Procedure: 69-year-old gentleman seen with progressive left shoulder pain. After having treatment options discussed, he elected to proceed with arthroscopy Operative Findings: See description of procedure Description of Procedure: Patient underwent an interscalene block by department of anesthesia. The patient was then taken to the operative suite. The patient underwent a general anesthetic by the department of anesthesia. The patient was placed into a lateral position and secured. There was appropriate padding of the bony prominence. Left shoulder was then prepped and draped in normal sterile orthopedic fashion. We placed the extremity in 10 pounds of longitudinal traction. A posterior incision was now made for a posterior working portal site. The trocar and cannula were inserted into the glenohumeral joint. Arthroscopy was initiated. Spinal needle was now inserted anteriorly, to ascertain the anterior working portal site. An incision was now made in that area, a trocar was inserted followed by a probe. There was partial tearing of the long head biceps tendon along with hyperemia. There was superficial tearing of the superior labrum. There were grade I chondromalacia changes throughout the glenohumeral joint without tears. I used a motorized shaver and debrided out the superficial labral tear. I passed the cannula through the anterior portal site. I placed a loop and tack type stitch through the biceps tendon and released it from the superior labral anchor. With assistance of Papito lim at the interval for insertion of an anchor. I then placed the sutures through the eyelet of an Arthrex 4.75 swivel lock anchor. I placed the eyelet into the prepunched hole, I held in position while Papito PERRY tensioned the suture and deployed the anchor with good fixation noted. The residual suture limb was clipped. We had a stable appearing biceps tenodesis. Instruments were now removed from the glenohumeral joint. Utilizing the posterior working portal site, the trocar and cannula were inserted into the subacromial space. Arthroscopy initiated. I made an incision 2 fingerbreadths lateral to the acromion. I introduced my trocar followed by my ArthroCare ablator. I now began ablating thick subacromial bursal tissue, which exposed the undersurface of the anterior acromion. There was diminished subacromial space. There was a very prominent anterior acromion. A motorized bur was introduced and a subacromial decompression was performed. I also excised some osteophytes off the inferior aspect of the distal clavicle. The AC joint was visualized and noted to be fairly arthritic. The motorized bur was introduced in the anterior portal site and a Yudi procedure was performed without difficulty, decompressing the AC joint nicely. I turned my attention to the rotator cuff. Upon probing the area I noted a very large calcific lesion along the area of the distal supraspinatus. I now began to meticulously decompress this large calcific lesion slowly removing any calcified tissue with a motorized shaver and then getting back and decompressing the lesion until I completely decompressed it. I now cleaned up the residual tearing of the rotator cuff tendon utilizing a motorized shaver. There was another calcific lesion more posteriorly that decompressed utilizing the needle and a probe. That did not create a full-thickness tear. There was a 2.53 cm rotator cuff tear. I debrided the margins getting down to stable tendon tissue. I introduced my motorized bur and abraded the footprint area, getting some petechial bleeding. I now made an accessory portal site off the lateral aspect of the acromion. I punched 2 holes medial for medial row fixation with the assistance of Papito PERRY carefully tapping the punch with a mallet as I held the punch and the camera. I now introduced both anchors into the pre-punched holes and Papito PERRY tapped them with the mallet as I held anchors and the camera. Papito PERRY now screwed the anchors in place a while I held the anchor guide and camera. All 8 limbs of suture were now passed through good bites of rotator cuff tendon. I now punched 2 holes for lateral row fixation again I held the punch and camera while Papito PERRY used a mallet to tap in the punch. We now passed sutures through both anchors and individually I introduced the anchors into the pre-punch holes I held the anchor guide in position with one hand holding the camera with the other hand while Papito PERRY tensioned the sutures and screwed in the anchors one at a time. All residual suture limbs were now clipped. We had good compression of the tendon along the entire footprint. Instruments now removed from the portal sites. All portal sites were approximated with nylon suture. Sterile dressings were applied followed by a shoulder immobilizer. Manuelito PERRY assisted in this complex case. The patient was awakened, transferred to a bed, and taken to recovery in stable condition.
[2024-06-16 11:06] VITALS: BP 134/89; PULSE 75; RESP 16
== END 2024-06-16 11:27 | disposition home or self-care (01) ==
LOC: OR 05:38
PROVIDERS: ATTEND Orthopaedic Surgery
DX: S43.492A Other sprain of left shoulder joint, initial encounter (principal); M75.102 Unspecified rotator cuff tear or rupture of left shoulder, not specified as traumatic; M75.42 Impingement syndrome of left shoulder; M19.012 Primary osteoarthritis, left shoulder; M75.22 Bicipital tendinitis, left shoulder; E78.5 Hyperlipidemia, unspecified; G89.18 Other acute postprocedural pain; I10 Essential (primary) hypertension; I25.10 Atherosclerotic heart disease of native coronary artery without angina pectoris; Z88.0 Allergy status to penicillin; Z90.49 Acquired absence of other specified parts of digestive tract; Z90.89 Acquired absence of other organs; Z79.01 Long term (current) use of anticoagulants; Z79.899 Other long term (current) drug therapy; Z88.1 Allergy status to other antibiotic agents; Z88.8 Allergy status to other drugs, medicaments and biological substances; X58.XXXA Exposure to other specified factors, initial encounter
CPT/HCPCS: 64415; 85610; 29824; 29826; 29827; 29828; C1713 ×3; J2250; J0330; J1100; J0690; J2405; J2003; J3010; J2795; J2704; J2371; J1596